=== PATIENT | male | born 1985 ===

== ENCOUNTER 2023-01-06 10:31 | Emergency (ER) | payer MEDICAID, OTHER, SELFPAY ==
[2023-01-06 10:44] VITALS: BP 124/62; PULSE 74; RESP 16; TEMP 37.1; O2SAT 98; BMI 33.1
--- NOTE | 2023-01-06 11:50 | ED_ITS ---
HPI - Skin/Abscess/Foreign Bdy General Chief complaint: Skin/Abscess/Foreign Body Stated complaint: skin feels burning rash arms face neck Time Seen by Provider: 01/06/23 10:52 Source: patient, RN notes reviewed and old records reviewed Mode of arrival: ambulatory History of Present Illness HPI narrative: 37-year-old male with a past medical history of tuberculosis currently being treated with Rifampin & Vitamin B6 x6 months and newly Ethambutol x3 days complaining of pruritic rash to bilateral arms, face, and neck x3 days. Denies other new medication, new exposures, soaps, lotion, detergents, fever/chills, SOB, throat closing sensation, difficulty swallowing MD complaint: rash Related Data Previous Rx's Medication Instructions Recorded hydrocortisone 1 % topical cream 1 appl topical BID PRN rash #454 01/06/23 (Cortisone (hydrocortisone)) grams Allergies Allergy/AdvReac Type Severity Reaction Status Date / Time No Known Allergies Allergy Verified 01/06/23 10:47 Review of Systems 2 Review of Systems: Constitutional: No Fever, No Chills ENT/Mouth: No Ear Pain, No Nasal Congestion, No Hoarseness, No sore throat, No Rhinorrhea, No Swallowing Difficulty Cardiovascular: No Chest Pain, No SOB Respiratory: No Cough, No Sputum, No Wheezing Gastrointestinal: No Nausea, No Vomiting, No Diarrhea, No Constipation, No Abdominal pain Genitourinary: No Dysuria, No Urinary Frequency, No Hematuria, No Urgency, No Flank Pain Musculoskeletal: No joint pain, No Myalgias, No Joint Swelling Skin: No Skin Lesions, + rash Yes all other systems are reviewed and are negative Constitutional: Constitutional: Reports as per [facility] Past Medical History Attestation statement: The following information was validated with the patient. Source: old records reviewed Social History Advance Directives: No Advance Directives Information Provided: No Physical Exam 2 Vital Signs: Vital Signs: Last Vital Signs Temp 98.7 F 01/06/23 10:44 Pulse 74 01/06/23 10:44 Resp 16 01/06/23 10:44 BP 124/62 01/06/23 10:44 Pulse Ox 98 01/06/23 10:44 O2 Del Method Room Air 01/06/23 10:44 BMI result Body Mass Index 33.1 Const: General: cooperative, healthy appearing and no acute distress O rientation/consciousness: patient oriented x3 Limitations: no limitations HEENT: Head: Yes normal to inspection and Yes atraumatic Ears: hearing grossly normal bilaterally General nose exam: Normal external nose present Face and sinus: Yes normal facial exam Mouth: Normal oral and palatal mucosa present and no drooling Throat: Yes tonsils normal, Yes uvula midline, No uvula laterally displaced and No uvular edema Eyes: General: appearance normal, both eyes and all related structures EOM: EOMs intact bilaterally Neck: Neck: Yes normal visual inspection and Yes no meningeal signs Resp: Effort & Inspection: normal respiratory effort, no respiratory distress, no stridor and not tachypneic Auscultation: clear to auscultation bilaterally and no wheezes Cardio: Rate: regular rate Skin: Other: Please refer to images above. Dry/scaly skin rash noted to bilateral upper extremities, face, and neck. No sloughing. No erythema/warmth. No streaking. No palm/stool or mucous membrane involvement. Wounds: no wounds Neuro: General: patient oriented x3, tone normal and no meningeal signs C ranial nerves: Yes CN's II-XII intact bilaterally Gait exam (Neuro): Normal gait present Extrem: General: Yes normal to inspection Medical Decision Making Medical Decision Making MDM Narrative: 37-year-old male with a past medical history of tuberculosis currently being treated with Rifampin & Vitamin B6 x6 months and newly Ethambutol x3 days complaining of pruritic rash to bilateral arms, face, and neck x3 days. On exam vital signs stable, NAD, nontoxic appearing, physical exam as noted above. Concern for psoriasis vs atopic dermatitis vs medication reaction. Low suspicion for SJS/TENS or allergic reaction. No evidence of anaphylaxis. Low suspicion for B6 deficiency as patient is supplementing. Case discussed with ED attending, Dr. Connors Plan: Topical steroid with Aquaphor, close follow-up with prescriber Results discussed with patient including worrisome signs and symptoms and strict return precautions, and when to return to the emergency department. They verbalized understanding and feel safe for discharge at this time. Differential Diagnosis Differential Diagnoses: The differential diagnosis associated with the presentation includes As above External Record Review External record reviewed: Inpatient record, Office record, Outpatient record, Prior outpatient labs, Prior outpatient radiology, Primary care record and Outside ED record Tests considered The following testing was considered but not selected: As above Prescription Management I considered prescription management with: Pain Medication, Antiviral and Antibiotic Chronic Conditions Patient?s care impacted by: Other (TB) Discharge Plan Discharge Clinical Impression: Rash Patient Disposition: Home, Self-Care Instructions: Acute Rash (ED) Additional Instructions: Please use topical hydrocortisone to rash areas only. You should also use Aquaphor on top of steroid cream, this is [id number] Place of close follow-up with her doctor/prescriber of new medication Continue taking vitamin B6 If rash is spreading, you fever/chills, shortness of breath, palm or sole or mouth involvement return to the ED immediately Utilice hidrocortisona t?pica ?nicamente en las zonas con sarpullido. Tambi?n debes usar Aquaphor encima de la crema con esteroides, esto es de venta jung. Lugar de seguimiento estrecho con hernandez m?dico/prescriptor de nuevos medicamentos Continuar tomando vitamina B6 Si el sarpullido se est? propagando, tiene fiebre/escalofr?os, dificultad para respirar, afectaci?n de la em o la planta o la boca, regrese al servicio de urgencias de inmediato. Prescriptions: New hydrocortisone [Cortisone (hydrocortisone)] 1 % cream 1 appl topical BID PRN (Reason: rash) Qty: 454 0RF Referrals: Sandy Pedro PA [Physician Public Health Service Officer] - Gibson Ganies MD [Physician] - Uziel Flynn MD [Physician] - Marcio Henderson MD [Physician] - Physician,None [Primary Care Provider] - 3 days Interventions: ED Discharge Assessment Last Done: 01/06/23 12:39 Discharge Date/Time: 01/06/23 12:39 Print Language: Latvian
== END 2023-01-06 12:39 | disposition home or self-care (01) ==
PROVIDERS: Emergency Provider Emergency Medicine
DX: R21 Rash and other nonspecific skin eruption (principal)
CPT/HCPCS: 99282; 99283

== ENCOUNTER 2023-03-14 13:29 | Emergency (ER) | payer MEDICAID, OTHER, SELFPAY ==
[2023-03-14 13:32] VITALS: BP 119/63; PULSE 70; RESP 18; TEMP 36.3; O2SAT 97; BMI 37.2
--- NOTE | 2023-03-14 13:39 | ED_ITS ---
HPI - General Adult General Chief complaint: General Medical Stated complaint: High Blood Sugar Time Seen by Provider: 03/14/23 14:21 Source: patient and chalk tester Mode of arrival: ambulatory Limitations: language barrier History of Present Illness HPI narrative: Patient is a 37 year old assigned male at with a history of TB, currently on treatment, and diabetes, currently using his friends insulin, presenting to the emergency department today with an elevated blood sugar. [place] and before he left [facility], he was on 30 units of long acting insulin in the morning. Patient states that he is currently using his friends diabetes supplies, including insulin. Patient denies any dizziness, lightheadedness, abdominal pain, nausea, vomiting, fever, chills, blurry vision, double vision, loss of vision, chest pain, difficulty breathing, shortness of breath, back pain, night sweats, pain with urination, increased urinary frequency, increased urinary urgency, blood in his urine or stool, syncope or a near syncopal episode, recent trauma or falls, bowel incontinence, bladder incontinence, bowel retention, bladder retention, or any other complaints at this time. Relieving factors: none Exacerbating factors: none Associated symptoms: denies other symptoms Related Data Previous Rx's Medication Instructions Recorded hydrocortisone 1 % topical cream 1 appl topical BID PRN rash #454 01/06/23 (Cortisone (hydrocortisone)) grams blood sugar diagnostic (Accu-Chek #100 ea 03/14/23 Sima Plus test strips) blood-glucose meter #1 ea 03/14/23 insulin glargine 100 unit/mL (3 21 unit (0.21 mL) subcut QAM #15 mL 03/14/23 mL) subcutaneous pen (Lantus Solostar U-100 Insulin) lancets #200 ea 03/14/23 Allergies Allergy/AdvReac Type Severity Reaction Status Date / Time No Known Allergies Allergy Verified 01/06/23 10:47 Review of Systems 2 Constitutional: Constitutional: Reports no additional constitutional complaints, Denies chills, Denies fever(s) and Denies night sweats Eyes: Eyes: Reports no additional eye complaints, Denies blurry vision, Denies change in vision, Denies diplopia, Denies eye discharge, Denies loss of vision and Denies eye pain ENT: Denies dizziness Cardiovascular: Cardiovascular: Reports no additional cardiovascular complaints, Denies chest pain, Denies lightheadedness, Denies Loss of Consciousness and Denies dyspnea Respiratory: Respiratory: Reports no additional respiratory complaints and Denies dyspnea Gastrointestinal: Gastrointestinal: Reports no additional gastrointestinal complaints, Denies abdominal pain, Denies melena, Denies hematochezia, Denies change in bowel habits and Denies change in stool character Genitourinary: Genitourinary: Reports no additional male genitourinary complaints, Denies hematuria, Denies oliguria, Denies difficulty urinating, Denies dysuria, Denies urinary frequency, Denies urinary hesitancy, Denies urinary incontinence and Denies urinary urgency Musculoskeletal: Musculoskeletal: Reports no additional musculoskeletal complaints, Denies numbness and Denies tingling Neurologic: Denies dizziness, Denies loss of vision, Denies numbness and Denies tingling Psychiatric: Psychiatric: Reports no additional psychiatric complaints Endocrine: Endocrine: Reports no additional endocrine complaints Hematologic/Lymphatic: Hematologic/Lymphatic: Reports no additional hematologic/lymphatic complaints Allergic/Immunologic: Allergic/Immunologic: Reports no additional allergic/immunologic complaints [facility] Past Medical History Attestation statement: The following information was validated with the patient. Source: old records reviewed and nursing notes reviewed Social History Social History Advance Directives: No Physical Exam ED Vital Signs: Vital Signs - 24 hr 03/14/23 13:32 Temperature 97.4 F Pulse Rate 70 Respiratory Rate 18 Blood Pressure 119/63 Pulse Oximetry 97 Oxygen Delivery Method Room Air BMI result Body Mass Index 37.2 Const General: cooperative, no acute distress, alert and awake Nutritional Appearance: well nourished Orientation/consciousness: patient oriented x3 Limitations: no limitations [facility] Head: Yes normal to inspection and Yes atraumatic Ears: hearing grossly normal bilaterally and external ears normal General nose exam: Normal external nose present, no nasal discharge noted and no epistaxis Face and sinus: Yes normal facial exam, No abrasion and No laceration Mouth: Normal oral and palatal mucosa present, no drooling and no muffled voice Eyes General: appearance normal, both eyes and all related structures Periorbital: periorbital findings normal Eyelids: Yes eyelids normal Conjunctivae: conjunctivae normal Pupils: Equal, round and reactive pupils present EOM: EOMs intact bilaterally Neck Neck: Yes normal visual inspection, Yes full ROM and Yes no lymphadenopathy Chest Chest palpation & inspection: normal inspection of the chest Resp Effort & Inspection: normal respiratory effort and able to speak in complete sentences GI Inspection: Yes normal to inspection Neuro General: patient oriented x3 and moves all extremities Cranial nerves: Yes Equal, round and reactive pupils present Cognition (Neuro): normal cognition Motor exam (neuro): 5/5 motor strength present throughout Sensory Exam: Normal double simultaneous stimulation for sensation Coordination: qlimsd-tm-hket test normal Extrem General: Yes normal to inspection, Yes full ROM and Yes capillary refill normal Psych Appearance: grossly normal Mental Status: mental status grossly normal Affect: normal affect Attitude: cooperative Thought process: Normal thought process present Thought content: Normal thought content present Insight: Good insight present (Psych) Course Course Course Narrative: RME: 37-year-old male known history of diabetes presents to the ED for hyperglycemia. Patient uses friend's glucometer to test his glucose which was 600. Patient recently came [facility] and has been only on metformin. Patient does not have a primary care provider. Labs POC ordered. Medications Administered Discontinued Medications Generic Name Dose Route Start Last Admin Trade Name Yamil PRN Reason Stop Dose Admin Sodium Chloride 1,000 mls @ 999 mls/hr 03/14/23 14:30 03/14/23 16:12 Ns IV 03/14/23 15:30 Infused .Q1H1M ANDREW Infusion Sodium Chloride 1,000 mls @ 999 mls/hr 03/14/23 14:30 03/14/23 16:12 Ns IV 03/14/23 15:30 Infused .Q1H1M ANDREW Infusion Insulin Human Regular 10 unit 03/14/23 14:49 03/14/23 14:57 Insulin Regular, Human 100 Unit/Ml 3 Ml Vial 0.1 unit/kg (10 unit) 03/14/23 14:50 10 unit IVPUSH Administration ONCE ONE Metformin HCl 500 mg 03/14/23 14:22 03/14/23 14:42 Metformin Hcl 500 Mg Tablet PO 03/14/23 14:23 Not Given ONCE ONE Medical Decision Making Medical Decision Making MDM Narrative: Patient is a 37 year old assigned male at with a history of TB and diabetes presenting to the emergency department today with an elevated blood sugar. Patient's physical exam was unremarkable. Patient's blood work was an elevated blood sugar of 712 with no anion gap or elevation of beta- hydroxybutyrate. Patient's urine showed no acute process. I explained my physical exam findings as well as all test results to the patient. I answered all questions asked by the patient. Patient received 2 liters of IV fluids and 10 units of insulin which effectively lowered his blood sugar. I stressed the importance of the patient taking his medication as prescribed. I stressed the importance of the patient following up with his primary care provider and an manufacturing mechanic. I stressed the importance of the patient returning to the emergency department immediately if his symptoms were to worsen or if he were to develop any dizziness, shortness of breath, difficulty breathing, chest pain, blurry vision, loss of vision, nausea, vomiting, abdominal pain, fever, chills, back pain, or any other complaints. Patient verbalized agreement and understanding with this treatment plan and discharge. Differential Diagnosis Differential Diagnoses: The differential diagnosis associated with the presentation includes DKA Diabetes Hyperglycemia Admission/Observation Consideration of admission/observation: Escalation of care including admission/observation considered Patient would have been admitted to the hospital had his work up had any findings where hospital admission was appropriate and his clinical presentation warranted hospital admission. Lab Data [facility] Lab Attestation statement: I reviewed the patient's lab results. My interpretation of these results are in the [facility] Rationale portion of this note. 03/14/23 13:47 03/14/23 13:47 Labs: Lab Results 03/14/23 03/14/23 03/14/23 Range/Units 13:42 13:44 13:47 WBC 8.2 (4.8-10.8) X10*3/uL RBC 5.40 (4.60-5.80) X10*6/uL Hgb 15.5 (14.0-18.0) g/dl Hct 45.8 (42.0-52.0) % MCV 84.8 (80.0-98.0) fL MCH 28.7 (27.0-33.0) pg MCHC 33.8 (31.0-36.0) g/dl RDW 12.7 (11.0-16.0) % Plt Count 266 (160-400) X10*3/uL MPV 9.5 (9.4-12.4) fL Immature Gran % (Auto) 0.2 (0.0-0.4) % Neut % (Auto) 63.7 (45-73) % Lymph % (Auto) 27.2 (20-40) % Evangeline % (Auto) 6.8 (2-11) % Eos % (Auto) 1.7 (0-4) % Baso % (Auto) 0.4 (0-2) % Lymph # (Auto) 2.2 (1.2-4.9) X10*3/uL Evangeline # (Auto) 0.6 (0.1-1.2) X10*3/uL Eos # (Auto) 0.1 (0.0-0.4) X10*3/uL Baso # (Auto) 0.0 (0.0-0.2) X10*3/uL Abs Immat Gran (auto) 0.02 (0.00-0.03) X10*3/uL Absolute Neuts (auto) 5.2 (2.0-8.3) x10*3/uL Absolute Nucleated RBC 0.000 (0.0-0.012) X10*3/uL Nucleated RBC % (auto) 0.0 (0.0-0.2) /100WBC VBG pH (7.32-7.43) VBG pCO2 mmHg VBG pO2 mmHg VBG HCO3 (22-26) mmol/L VBG O2 Saturation % VBG Base Excess mmol/L Sodium 131 L (135-145) mmol/L Potassium 4.4 (3.3-5.1) mmol/L Chloride 97 (96-108) mmol/L Carbon Dioxide 27 (22-29) mmol/L Anion Gap 11 L (12-20) BUN 14 (9-16) mg/dL Creatinine 1.17 (0.5-1.4) mg/dL Estim Creat Clear Calc 94.1 Estimated GFR > 60 POC Glucose > 600 H* (60-115) mg/dL Random Glucose 712 H* (60-115) mg/dL Calcium 9.2 (8.4-10.2) mg/dL Total Bilirubin 0.3 (0.0-1.0) mg/dL AST 35 (5-37) U/L ALT 80 H (0-40) U/L Alkaline Phosphatase 155 H (39-117) U/L Total Protein 7.7 (6.5-8.0) g/dL Albumin 4.2 (3.5-5.0) g/dL Beta-Hydroxybutyrate 0.17 (0.02-0.27) mmol/L Urine Color Yellow Urine Appearance Clear Urine pH 6.5 (5.0-9.0) Ur Specific [place] >= 1.030 H (1.005-1.025) Urine Protein Negative (Neg-Trace) mg/dL Urine Glucose (UA) >=1000 H (Negative) mg/dL Urine Ketones Negative (Negative) mg/dL Urine Blood Negative (Negative) Urine Nitrite Negative (Negative) Ur Leukocyte Esterase Negative (Negative) Urine RBC 0-2 (0-2) /HPF Urine WBC 0-5 (0-5) /HPF Ur Squamous Epith Cells 0-2 (0-2) /HPF Urine Bacteria None Seen (None Seen) Hyaline Casts 0-2 (0-2) /LPF COVID-19 ([facility]ARD) Negative (Negative) COVID-19 Clin Com See Note Influenza Type A ([place]) Negative (Negative) Influenza Type B ([place]) Negative (Negative) Influenza A & B Note See Note 03/14/23 03/14/23 Range/Units 13:51 16:10 WBC (4.8-10.8) X10*3/uL RBC (4.60-5.80) X10*6/uL Hgb (14.0-18.0) g/dl Hct (42.0-52.0) % MCV (80.0-98.0) fL MCH (27.0-33.0) pg MCHC (31.0-36.0) g/dl RDW (11.0-16.0) % Plt Count (160-400) X10*3/uL MPV (9.4-12.4) fL Immature Gran % (Auto) (0.0-0.4) % Neut % (Auto) (45-73) % Lymph % (Auto) (20-40) % [place]eline % (Auto) (2-11) % Eos % (Auto) (0-4) % Baso % (Auto) (0-2) % Lymph # (Auto) (1.2-4.9) X10*3/uL [place] # (Auto) (0.1-1.2) X10*3/uL Eos # (Auto) (0.0-0.4) X10*3/uL Baso # (Auto) (0.0-0.2) X10*3/uL Abs Immat Gran (auto) (0.00-0.03) X10*3/uL Absolute Neuts (auto) (2.0-8.3) x10*3/uL Absolute Nucleated RBC (0.0-0.012) X10*3/uL Nucleated RBC % (auto) (0.0-0.2) /100WBC VBG pH 7.36 (7.32-7.43) VBG pCO2 53 mmHg VBG pO2 32 mmHg VBG HCO3 30 H (22-26) mmol/L VBG O2 Saturation 46.0 % VBG Base Excess 3.6 mmol/L Sodium (135-145) mmol/L Potassium (3.3-5.1) mmol/L Chloride (96-108) mmol/L Carbon Dioxide (22-29) mmol/L Anion Gap (12-20) BUN (9-16) mg/dL Creatinine (0.5-1.4) mg/dL Estim Creat Clear Calc Estimated GFR POC Glucose 244 H (60-115) mg/dL Random Glucose (60-115) mg/dL Calcium (8.4-10.2) mg/dL Total Bilirubin (0.0-1.0) mg/dL AST (5-37) U/L ALT (0-40) U/L Alkaline Phosphatase (39-117) U/L Total Protein (6.5-8.0) g/dL Albumin (3.5-5.0) g/dL Beta-Hydroxybutyrate (0.02-0.27) mmol/L Urine Color Urine Appearance Urine pH (5.0-9.0) Ur Specific [place] (1.005-1.025) Urine Protein (Neg-Trace) mg/dL Urine Glucose (UA) (Negative) mg/dL Urine Ketones (Negative) mg/dL Urine Blood (Negative) Urine Nitrite (Negative) Ur Leukocyte Esterase (Negative) Urine RBC (0-2) /HPF Urine WBC (0-5) /HPF Ur Squamous Epith Cells (0-2) /HPF Urine Bacteria (None Seen) Hyaline Casts (0-2) /LPF COVID-19 ([facility]) (Negative) COVID-19 Clin Com Influenza Type A ([place]) (Negative) Influenza Type B ([place]) (Negative) Influenza A & B Note Chronic Conditions Patient?s care impacted by: Diabetes Critical Care Time Critical Care Time Critical Care Time: Yes Total Critical Care Time: 45 Attestation: I spent 45 minutes of Critical Care Time with this patient. This does not include time spent on separately reported billable procedures. Discharge Plan Discharge Clinical Impression: Diabetes Patient Disposition: Home, Self-Care Instructions: Diabetes and Nutrition (ED), Type 2 Diabetes Management for Adults (ED) Additional Instructions: Follow up with your primary care provider. Return to the emergency department immediately if your symptoms worsen or if you develop any dizziness, shortness of breath, difficulty breathing, chest pain, blurry vision, loss of vision, nausea, vomiting, abdominal pain, fever, chills, back pain, or any other complaints. Emile un seguimiento con hernandez proveedor de atenci?n primaria. Regrese al departamento de emergencias inmediatamente si cabrera s?ntomas empeoran o si presenta mareos, dificultad para respirar, dificultad para respirar, dolor en el pecho, visi?n borrosa, p?rdida de la visi?n, n?useas, v?mitos, dolor abdominal, fiebre, escalofr?os, dolor de espalda o cualquier otras quejas. Prescriptions: New insulin glargine [Lantus Solostar U-100 Insulin] 100 unit/mL (3 mL) insulin pen 21 unit subcut QAM Qty: 15 0RF (DME) blood-glucose meter Misc See Rx Instructions .Route Qty: 1 0RF Rx Instructions: As directed (DME) Accu-Chek Sima Plus test strp Strip See Rx Instructions .Route Qty: 100 0RF Rx Instructions: As directed (DME) lancets Misc See Rx Instructions .Route Qty: 200 0RF Rx Instructions: As directed No Action hydrocortisone [Cortisone (hydrocortisone)] 1 % cream 1 appl topical BID PRN (Reason: rash) Qty: 454 0RF Referrals: [facility] [place] [facility] [Provider Group] (Call to establish and follow up with a primary care provider. Llame para establecer y realizar un seguimiento con un proveedor de atenci?n primaria.) [facility] Primary Care, [place] [Provider Group] (Call to establish and follow up with a primary care provider. Llame para establecer y realizar un seguimiento con un proveedor de atenci?n primaria.) [facility] [Provider Group] (Call to establish and follow up with a primary care provider. Llame para establecer y realizar un seguimiento con un proveedor de atenci?n primaria.) Isaiah Quinonez MD [Physician] - (Call to establish and follow up with a copy center specialist. Llame para establecer y lashay seguimiento con un especialista en diabetes. ) [facility] [Physician] - (Call to establish and follow up with a primary care provider. Llame para establecer y realizar un seguimiento con un proveedor de atenci?n primaria.) Discharge Date/Time: 03/14/23 17:19 Print Language: Pashto
[2023-03-14 13:46] LABS: Glucose, Whole Blood > 600 mg/dL (60-115)
[2023-03-14 13:55] LABS: MANUAL DIFF FLAG NO
[2023-03-14 13:57] LABS: Basophils Percent Auto 0.4 % (0-2); Eosinophils Absolute Auto 0.1 X10*3/uL (0.0-0.4); Eosinophils Percent Auto 1.7 % (0-4); Hematocrit 45.8 % (42.0-52.0); Hemoglobin 15.5 g/dl (14.0-18.0); Imm Gran Abs Auto 0.02 X10*3/uL (0.00-0.03); Imm Gran Pct Auto 0.2 % (0.0-0.4); Lymphocytes Absolute Auto 2.2 X10*3/uL (1.2-4.9); Lymphocytes Percent Auto 27.2 % (20-40); Mean Corpuscular HGB Conc 33.8 g/dl (31.0-36.0); Mean Corpuscular Hemoglobin 28.7 pg (27.0-33.0); Mean Corpuscular Volume 84.8 fL (80.0-98.0); Mean Platelet Volume 9.5 fL (9.4-12.4); Monocytes Absolute Auto 0.6 X10*3/uL (0.1-1.2); Monocytes Percent Auto 6.8 % (2-11); Neutrophils Absolute Auto 5.2 x10*3/uL (2.0-8.3); Neutrophils Percent Auto 63.7 % (45-73); Platelet Count 266 X10*3/uL (160-400); Red Cell Distribution Width 12.7 % (11.0-16.0); White Blood Count 8.2 X10*3/uL (4.8-10.8)
[2023-03-14 13:57] LABS: Venous Blood Gas Refer to POC result
[2023-03-14 13:57] LABS: VBG Base Excess 3.6 mmol/L; VBG HCO3 30 mmol/L (22-26); VBG pCO2 53 mmHg; VBG pH 7.36 (7.32-7.43); VBG pO2 32 mmHg
[2023-03-14 13:58] LABS: Appearance Urine Clear; Color Urine Yellow; Glucose Urine UA >=1000 mg/dL (Negative); Leukocyte Esterase Urine Negative (Negative); Nitrite Urine Negative (Negative); PH 6.5 (5.0-9.0); Specific Gravity - Urine >= 1.030 (1.005-1.025); UMIC TRIGGER UACC YES; Urine Blood Negative (Negative); Urine Ketones Negative (Negative); Urine Protein Negative (Neg-Trace)
[2023-03-14 14:11] LABS: COVID-19 Test Negative (Negative); IDNOW Serial# 08D9AD1C
[2023-03-14 14:12] LABS: Beta-Hydroxybutyrate 0.17 mmol/L (0.02-0.27)
[2023-03-14 14:15] LABS: IDNOW Serial# 152EDE1D; Influenza A Negative (Negative); Influenza B2 Negative (Negative)
[2023-03-14 14:16] LABS: Alanine Aminotransferase 80 U/L (0-40); Albumin Level 4.2 g/dL (3.5-5.0); Alkaline Phosphatase 155 U/L (39-117); Anion Gap 11 (12-20); Aspartate Amino Transferase 35 U/L (5-37); Bilirubin Total 0.3 mg/dL (0.0-1.0); Blood Urea Nitrogen 14 mg/dL (9-16); Calcium 9.2 mg/dL (8.4-10.2); Carbon Dioxide 27 mmol/L (22-29); Chloride 97 mmol/L (96-108); Creatinine Clr Calc Pharmacy 94.1; Estimated Glomerular Filt Rate > 60; Potassium 4.4 mmol/L (3.3-5.1); Sodium 131 mmol/L (135-145); Total Protein 7.7 g/dL (6.5-8.0)
[2023-03-14 14:19] LABS: Bacteria Urine None Seen (None Seen); Hyaline Casts Urine 0-2 /LPF (0-2); RBC Urine 0-2 /HPF (0-2); Squamous Epithelial Cell Urine 0-2 /HPF (0-2); WBC Urine 0-5 /HPF (0-5)
[2023-03-14 14:21] LABS: Glucose Random 712 mg/dL (60-115)
[2023-03-14] MEDS: Insulin Regular, Human 100 UNIT/ML 3 ML VIAL 10 UNIT IVPUSH (14:57)
[2023-03-14] MEDS: 0.9 % Sodium Chloride 1,000 ML 999 ML IV ×2 (14:58→15:34)
[2023-03-14 16:13] LABS: Glucose, Whole Blood 244 mg/dL (60-115)
== END 2023-03-14 17:19 | disposition home or self-care (01) ==
PROVIDERS: Physician Assistant; Emergency Provider Emergency Medicine Emergency Medical Services
DX: E11.65 Type 2 diabetes mellitus with hyperglycemia (principal); Z11.52 Encounter for screening for COVID-19
CPT/HCPCS: 36415; 80053; 81001; 82010; 82803; 82947; 85025; 87502; 87635; 96361; 96374; 99283; 99284

== ENCOUNTER 2023-07-17 14:57 | Outpatient (REF) | payer SELFPAY ==
[2023-07-18 05:25] LABS: CT PCR NOT DETECTED (Not Detect.); NG PCR NOT DETECTED (Not Detect.)
[2023-07-19 09:03] LABS: RPR Rapid Plasma Reagin NON-REACTIVE (NON-REACTIVE)
== END 2023-07-17 14:58 | disposition home or self-care (01) ==
LOC: HO.HHCL 14:57
PROVIDERS: Visit Provider Nurse Practitioner Family
DX: Z70.8 Other sex counseling (principal); Z20.2 Contact with and (suspected) exposure to infections with a predominantly sexual mode of transmission
CPT/HCPCS: 0353U; 36415; 86592; 87536; 87900